=== PATIENT | male | born 1950 | race Caucasian/White ===

== ENCOUNTER 2018-05-23 10:45 | Emergency (ER) | payer OTHER, MEDICAID ==
[~2018-05-23] VITALS: Ht 167.6 cm; Wt 65.0 kg
[~2018-05-23 10:45] MED LIST: UNKNOWN MEDICATION
[2018-05-23 11:52] LABS: BASOPHILS % 1.9 % (0.0-2.0); EOSINOPHILS % 3.4 % (0.0-5.0); HEMATOCRIT. 34.7 % (42.0-52.0); HEMOGLOBIN. 11.5 g/dL (14.0-18.0); LYMPHOCYTES % 14.2 % (20.0-50.0); MEAN CORPUSCULAR HEMOGLOBIN 28.3 pg (28.0-32.0); MEAN CORPUSCULAR VOLUME 85.8 fL (80.0-94.0); MEAN PLATELET VOLUME 8.1 fl (7.4-10.4); MONOCYTES % 10.9 % (2.0-8.0); NEUTROPHILS % 69.6 % (40.0-76.0); PLATELET 291 x1000/uL (130-400); RED BLOOD CELL COUNT 4.05 mill/uL (4.7-6.1); RED CELL DISTRIBUTION WIDTH 16.6 % (11.6-14.6)
[2018-05-23] MEDS ORDERED: SODIUM CHLORIDE 0.9% 1,000 ML IV ONE (11:57)
[2018-05-23 11:58] LABS: CHLORIDE 99 mEq/L (98-107)
[2018-05-23 13:21] LABS: AMYLASE 23 IU/L (25-115)
[2018-05-23 13:25] LABS: BETA HYDROXYBUTYRATE 0.1 mMol/L (0.0-0.3)
[2018-05-23 15:05] LABS: CLARITY URINE CLEAR (CLEAR); COLOR URINE YELLOW (YELLOW); KETONES URINE NEGATIVE (NEGATIVE); LEUKOCYTE ESTERASE URINE NEGATIVE (NEGATIVE); NITRITE URINE NEGATIVE (NEGATIVE); OCCULT BLOOD URINE NEGATIVE (NEGATIVE); PH URINE 5.5 (4.5-8.0); PROTEIN URINE NEGATIVE (NEGATIVE); SPECIFIC GRAVITY URINE 1.031 (1.005-1.030)
[2018-05-23] MEDS ORDERED: INSULIN REGULAR (HUMULIN R) 300UNITS/3ML SUBCUT ONE (15:45)
[2018-05-23] MEDS ORDERED: INSULIN NPH (HUMULIN-N) 100 UNITS/ML 3ML VIAL SUBCUT ONE (15:45)
[2018-05-23 16:31] VITALS: BP 127/71
== END 2018-05-23 16:39 | disposition home or self-care (01) ==
LOC: ER 10:45 → CANBEDREQ 16:59
DX: E11.65 Type 2 diabetes mellitus with hyperglycemia (principal)
CPT/HCPCS: 36415; 71045; 80053; 81003; 82010; 82150; 82962; 83690; 84484; 85025; 93005; 96360; 96372; 99285; J1815; J7030; 96361

== ENCOUNTER 2018-06-14 06:07 | Emergency (ER) | payer OTHER, MEDICAID ==
[~2018-06-14] VITALS: Ht 167.6 cm; Wt 66.0 kg
[2018-06-14 07:56] LABS: CLARITY URINE TURBID (CLEAR); COLOR URINE YELLOW (YELLOW); KETONES URINE NEGATIVE (NEGATIVE); LEUKOCYTE ESTERASE URINE 3+ (NEGATIVE); NITRITE URINE POSITIVE (NEGATIVE); OCCULT BLOOD URINE 2+ (NEGATIVE); PROTEIN URINE 2+ (NEGATIVE); SPECIFIC GRAVITY URINE 1.015 (1.005-1.030)
[2018-06-14] MEDS ORDERED: CEFTRIAXONE 1 G PREMIX 50 ML IV ONE (08:15)
[2018-06-14 09:03] LABS: HEMATOCRIT. 34.3 % (42.0-52.0); HEMOGLOBIN. 11.5 g/dL (14.0-18.0); MEAN CORPUSCULAR HEMOGLOBIN 28.2 pg (28.0-32.0); MEAN CORPUSCULAR VOLUME 83.7 fL (80.0-94.0); PLATELET 664 x1000/uL (130-400); RED BLOOD CELL COUNT 4.09 mill/uL (4.7-6.1); RED CELL DISTRIBUTION WIDTH 14.9 % (11.6-14.6)
[2018-06-14 09:10] LABS: CHLORIDE 99 mEq/L (98-107)
[2018-06-14 09:34] LABS: PLATELET ESTIMATE INCREASED
[2018-06-14 09:57] VITALS: BP 123/70
== END 2018-06-14 10:01 | disposition home or self-care (01) ==
LOC: ER 09:26
DX: N39.0 Urinary tract infection, site not specified (principal); E11.9 Type 2 diabetes mellitus without complications; I10 Essential (primary) hypertension; Z85.038 Personal history of other malignant neoplasm of large intestine; Z98.890 Other specified postprocedural states
CPT/HCPCS: 36415; 51702; 80053; 81003; 85025; 87077; 87086; 87186; 96365; 99284; J0696; A4315

== ENCOUNTER 2021-11-28 20:57 | Emergency (ER) | payer MEDICAID, MEDICARE, OTHER ==
[~2021-11-28] VITALS: Ht 172.7 cm; Wt 69.0 kg
[2021-11-28 21:51] LABS: BASOPHILS % 0.2 % (0.0-2.0); HEMATOCRIT. 37.2 % (42.0-52.0); HEMOGLOBIN. 12.2 g/dL (14.0-18.0); LYMPHOCYTES % 8.2 % (20.0-50.0); MEAN CORPUSCULAR HEMOGLOBIN 27.2 pg (28.0-32.0); MEAN CORPUSCULAR VOLUME 82.9 fL (80.0-94.0); MEAN PLATELET VOLUME 8.1 fl (7.4-10.4); NEUTROPHILS % 88.6 % (40.0-76.0); PLATELET 311 x1000/uL (130-400); RED BLOOD CELL COUNT 4.49 mill/uL (4.7-6.1); RED CELL DISTRIBUTION WIDTH 15.6 % (11.6-14.6)
[2021-11-28 21:55] LABS: CHLORIDE 100 mEq/L (98-107)
[2021-11-28 22:03] LABS: BETA HYDROXYBUTYRATE 0.2 mMol/L (0.0-0.3)
[2021-11-28 23:27] LABS: CLARITY URINE CLEAR (CLEAR); KETONES URINE NEGATIVE (NEGATIVE); LEUKOCYTE ESTERASE URINE NEGATIVE (NEGATIVE); NITRITE URINE NEGATIVE (NEGATIVE); OCCULT BLOOD URINE NEGATIVE (NEGATIVE); PROTEIN URINE NEGATIVE (NEGATIVE); SPECIFIC GRAVITY URINE 1.025 (1.005-1.030); UROBILINOGEN URINE 0.2 E.U./dL (0.2-1.0)
[2021-11-28] MEDS ORDERED: KETOROLAC 30MG/ML VIAL IV STA (23:28)
[2021-11-28] MEDS ORDERED: SODIUM CHLORIDE 0.9% 1,000 ML IV ONE (23:30)
[2021-11-28 23:48] LABS: COLOR URINE PALE YELLOW (YELLOW)
[2021-11-29] MEDS ORDERED: GABA300C MT (02:54)
[2021-11-29 03:30] VITALS: BP 154/76
[2021-11-29] MEDS ORDERED: GABA-529 MT (23:57)
[2021-11-30] MEDS ORDERED: KETOROLAC 15MG/ML VIAL IM NR
== END 2021-11-29 03:53 | disposition home or self-care (01) ==
LOC: ER 20:57
DX: E11.65 Type 2 diabetes mellitus with hyperglycemia (principal); B02.9 Zoster without complications; I10 Essential (primary) hypertension; Z85.9 Personal history of malignant neoplasm, unspecified; Z79.899 Other long term (current) drug therapy
CPT/HCPCS: 36415; 71045; 80053; 81003; 82010; 82962; 85025; 96361; 96374; 99285; J1885; J7030

== ENCOUNTER 2021-11-29 20:02 | Emergency (ER) | payer MEDICARE, MEDICAID ==
[~2021-11-29] VITALS: Ht 162.6 cm; Wt 71.0 kg
[~2021-11-29 20:02] MED LIST changes: +GABA300C MT
[2021-11-29] MEDS ORDERED: GABA-529 MT (23:57)
[2021-11-30 00:40] VITALS: BP 105/57
[2021-11-30] MEDS ORDERED: KETOROLAC 30MG/ML VIAL IM NR (01:00)
== END 2021-11-30 00:47 | disposition home or self-care (01) ==
LOC: ER 20:41
DX: B02.29 Other postherpetic nervous system involvement (principal); R03.0 Elevated blood-pressure reading, without diagnosis of hypertension
CPT/HCPCS: 82962; 96372; 99283; J1885

== ENCOUNTER 2025-10-25 19:14 | Inpatient (IN) | payer MEDICARE, MEDICAID ==
[~2025-10-25] VITALS: Ht 167.6 cm; Wt 73.5 kg
[~2025-10-25 19:14] MED LIST changes: +GABA-529 MT
[2025-10-25 19:19] VITALS: O2SAT 98
[2025-10-25] MEDS: SODIUM CHLORIDE 0.9% (SEPSIS BOLUS) IV ONE (19:54)
[2025-10-25] MEDS: PIPERACILLIN/TAZO 3.375G/50ML 50 ML IV ONE (20:34)
[2025-10-25 20:37] LABS: HEMATOCRIT. 32.7 % (42.0-52.0); HEMOGLOBIN. 10.8 g/dL (14.0-18.0); MEAN PLATELET VOLUME 8.1 fl (7.4-10.4); PLATELET 409 x1000/uL (130-400); RED BLOOD CELL COUNT 4.04 mill/uL (4.7-6.1); RED CELL DISTRIBUTION WIDTH 15.6 % (11.6-14.6)
[2025-10-25 20:48] LABS: INR 1.1
[2025-10-25] MEDS: SODIUM CHLORIDE 0.9% 1,000 ML IV ONE (20:49)
[2025-10-25 20:53] LABS: CREATININE 1.3 mg/dL (0.6-1.3); UREA NITROGEN BLOOD 10 mg/dL (9-23)
[2025-10-25 20:54] LABS: PROTEIN TOTAL 7.3 g/dL (6.0-8.3)
[2025-10-25 20:55] LABS: ASPARTATE AMINOTRANSFERASE 13 IU/L (<34); BILIRUBIN DIRECT 0.1 mg/dL (<=3.0); BILIRUBIN TOTAL 0.4 mg/dL (0.1-1.0)
[2025-10-25 20:57] LABS: BAND% 1.0 % (1.0-6.0); LYMPHOCYTES % MANUAL 3.0 % (20.0-50.0); MONOCYTES % MANUAL 7.0 % (2.0-8.0); NEUTROPHILS % MANUAL 89.0 % (45.0-75.0); PLATELET ESTIMATE INCREASED
[2025-10-25] MEDS: VANCOMYCIN 1G PREMIX 200 ML IV ONE (21:00)
[2025-10-25 21:21] LABS: TROPONIN I HIGH SENSITIVITY 83 ng/L (3.0-53)
[2025-10-25] MEDS: NOREPINEPHRINE 8MG/250ML PMX 250 ML IV ONE (21:23)
[2025-10-25 22:48] LABS: TROPONIN I HIGH SENSITIVITY 86 ng/L (3.0-53)
[2025-10-26] VITALS (93 sets, daily range): BP systolic 67–124; BP diastolic 53–90; PULSE 67–106; RESP 12–26; TEMP 36.6–36.9; O2SAT 91–98
[2025-10-26] LABS: CLARITY URINE CLEAR (CLEAR); COLOR URINE YELLOW (YELLOW); GLUCOSE URINE 2+ (NEGATIVE); KETONES URINE NEGATIVE (NEGATIVE); LEUKOCYTE ESTERASE URINE TRACE (NEGATIVE); NITRITE URINE NEGATIVE (NEGATIVE); OCCULT BLOOD URINE 1+ (NEGATIVE); PH URINE 5.5 (4.5-8.0); PROTEIN URINE NEGATIVE (NEGATIVE); SPECIFIC GRAVITY URINE 1.013 (1.005-1.030); UROBILINOGEN URINE 0.2 E.U./dL (0.2-1.0)
[2025-10-26] MEDS: IOHEXOL-350 100 ML BOTTLE ONE (00:22)
[2025-10-26 01:45] LABS: BACTERIA URINE 1+; RBC URINE 0-2 /hpf (0-2); SQUAMOUS EPITHELIAL CELL URINE FEW /lpf (RARE/1+); WBC URINE 0-2 /hpf (0-2); YEAST URINE 2+
[2025-10-26] MEDS ORDERED: LEVETIRACETAM 500MG in NACL 100ML PREMIX IV SCH (02:15)
[2025-10-26] MEDS ORDERED: ONDANSETRON HCL 4MG/2ML INJ IV PRN (02:15)
[2025-10-26] MEDS ORDERED: CEFEPIME 1GM IN DEXT 5% 50ML IV SCH (02:15)
[2025-10-26] MEDS: LEVETIRACETAM 500MG PREMIX 100 ML IV SCH (02:40)
[2025-10-26] MEDS: DEXT 5%/0.45% NACL KCL 20MEQ/L 1,000 ML IV SCH (02:40)
[2025-10-26] MEDS: CEFEPIME 2GM PREMIX 100ML IV SCH ×2 (04:22→17:06)
[2025-10-26 06:07] LABS: PLATELET 399 x1000/uL (130-400); RED BLOOD CELL COUNT 4.02 mill/uL (4.7-6.1); RED CELL DISTRIBUTION WIDTH 15.9 % (11.6-14.6)
[2025-10-26 06:30] LABS: CREATININE 1.2 mg/dL (0.6-1.3); UREA NITROGEN BLOOD 9.0 mg/dL (9-23)
[2025-10-26] MEDS: MAGNESIUM 2 G PREMIX 50 ML IV NR (08:22)
[2025-10-26] MEDS: VANCOMYCIN 500MG/100ML IV SCH (08:23)
[2025-10-26] MEDS: PANTOPRAZOLE SODIUM 40 MG/VIAL IV SCH (08:23)
[2025-10-26] MEDS ORDERED: DEXTROSE 50% WATER 50ML SYRINGE IV PRN (09:00)
[2025-10-26] MEDS ORDERED: DOCUSATE SODIUM 100MG CAPSULE PO PRN (09:30)
[2025-10-26] MEDS ORDERED: CLONIDINE 0.1MG TABLET PO PRN (09:30)
[2025-10-26] MEDS ORDERED: IPRATROPIUM/ALBUTEROL 0.5-3(2.5)MG/3ML NEB HHN PRN (09:30)
[2025-10-26] MEDS ORDERED: ACETAMINOPHEN 325MG TABLET PO PRN (09:30)
[2025-10-26] MEDS: ASPIRIN 81MG TABLET PO SCH (11:22)
[2025-10-26] MEDS: ENOXAPARIN 40MG/0.4ML SYR SUBCUT SCH (11:22)
[2025-10-26] MEDS: SODIUM CHLORIDE 0.45% 1,000 ML IV SCH (11:23)
[2025-10-26] MEDS: KCL 20MEQ/100ML PREMIX 100 ML IV SCH (11:26)
[2025-10-26] MEDS: POTASSIUM CHLORIDE 20MEQ TABLET SR PO SCH (11:26)
[2025-10-26] MEDS: BLOOD SUGAR DIAGNOSTIC STRIP TEST SCH (11:30)
[2025-10-26] MEDS: VANCOMYCIN 750MG/150ML (BAXTER) IV SCH (12:47)
[2025-10-26] MEDS: INSULIN LISPRO 100 UNITS/ML SUBCUT SCH ×2 (12:50→21:51)
[2025-10-26 13:01] LABS: ETHANOL BLOOD < 10 mg/dL (<10); LDL CHOLESTEROL 39 mg/dL (5-100); TRIGLYCERIDE 193 mg/dL (0-150)
[2025-10-26 13:02] LABS: CREATINE KINASE MB FRACTION 5.5 ng/mL (0.5-3.6)
[2025-10-26] MEDS ORDERED: IOHEXOL-350 100 ML BOTTLE ONE ×3 (16:10→23:54)
[2025-10-26 18:49] LABS: TROPONIN I HIGH SENSITIVITY 2069 ng/L (3.0-53)
[2025-10-26] MEDS: ATORVASTATIN CALCIUM 40MG TABLET PO SCH (21:50)
[2025-10-26] MEDS: INSULIN GLARGINE 100 UNITS/ML SUBCUT SCH (21:52)
[2025-10-26 23:47] LABS: TROPONIN I HIGH SENSITIVITY 1680 ng/L (3.0-53)
[2025-10-27] VITALS (98 sets, daily range): BP systolic 64–111; BP diastolic 47–81; PULSE 63–84; RESP 14–27; TEMP 36–37.6; O2SAT 92–98
[2025-10-27 05:49] LABS: BASOPHILS % 0.7 % (0.0-2.0); EOSINOPHILS % 1.5 % (0.0-5.0); HEMATOCRIT. 30.9 % (42.0-52.0); HEMOGLOBIN. 10.1 g/dL (14.0-18.0); LYMPHOCYTES % 7.1 % (20.0-50.0); MEAN PLATELET VOLUME 7.8 fl (7.4-10.4); MONOCYTES % 7.7 % (2.0-8.0); NEUTROPHILS % 83.0 % (40.0-76.0); PLATELET 393 x1000/uL (130-400); RED BLOOD CELL COUNT 3.86 mill/uL (4.7-6.1); RED CELL DISTRIBUTION WIDTH 15.3 % (11.6-14.6)
[2025-10-27 05:59] LABS: CREATININE 1.0 mg/dL (0.6-1.3); UREA NITROGEN BLOOD 6 mg/dL (9-23)
[2025-10-27] MEDS: ACETAMINOPHEN 325MG TABLET PO PRN (05:59)
[2025-10-27 06:00] LABS: BILIRUBIN TOTAL 0.3 mg/dL (0.1-1.0); PROTEIN TOTAL 6.0 g/dL (6.0-8.3)
[2025-10-27 06:01] LABS: ASPARTATE AMINOTRANSFERASE 11 IU/L (<34); BILIRUBIN DIRECT < 0.1 mg/dL (<=3.0); PHOSPHORUS 1.1 mg/dL (2.5-4.9)
[2025-10-27 06:03] LABS: FOLIC ACID (FOLATE) SERUM 9.14 ng/mL (>5.38); VITAMIN B12 SERUM 375 pg/mL (211-911)
[2025-10-27 06:04] LABS: INR 1.1
[2025-10-27] MEDS: VANCOMYCIN 1.25GM/250ML IV SCH (08:18)
[2025-10-27] MEDS: NOREPINEPHRINE 8MG/250ML PMX 250 ML IV PRN (08:19)
[2025-10-27] MEDS: MAGNESIUM 2 G PREMIX 50 ML IV NR (09:03)
[2025-10-27] MEDS: CYANOCOBALAMIN 1000MCG/ML VIAL IM SCH (09:04)
[2025-10-27] MEDS: INSULIN GLARGINE 100 UNITS/ML SUBCUT SCH (10:21)
[2025-10-27] MEDS: POTASSIUM PHOSPHATE 30 MMOL in SODIUM CHLORIDE 0.9% 490 ML IV NR (11:00)
[2025-10-27] MEDS: FERROUS SULFATE 325MG TABLET PO SCH (12:11)
[2025-10-27 13:21] LABS: *AMPHETAMINES SCREEN URINE NEGATIVE (NEGATIVE); *BARBITURATES SCREEN URINE NEGATIVE (NEGATIVE); *BENZODIAZEPINES SCREEN URINE NEGATIVE (NEGATIVE); *COCAINE SCREEN URINE NEGATIVE (NEGATIVE); CANNABINOID URINE SCREEN NEGATIVE (NEGATIVE); ECSTASY MDMA SCREEN URINE NEGATIVE (NEGATIVE); METHADONE URINE SCREEN NEGATIVE (NEGATIVE); OPIATES URINE SCREEN NEGATIVE (NEGATIVE); PHENCYCLIDINE URINE SCREEN NEGATIVE (NEGATIVE)
[2025-10-27] MEDS: ONDANSETRON HCL 4MG/2ML INJ IV PRN (15:33)
[2025-10-28] VITALS (94 sets, daily range): BP systolic 57–154; BP diastolic 46–119; PULSE 67–82; RESP 13–30; TEMP 36.5–36.8; O2SAT 89–97
[2025-10-28 07:11] LABS: CREATININE 1.0 mg/dL (0.6-1.3)
[2025-10-28 07:12] LABS: UREA NITROGEN BLOOD 7 mg/dL (9-23)
[2025-10-28] MEDS ORDERED: LIDOCAINE HCL 1% 10 MG/ML 10ML VIAL ONE (10:09)
[2025-10-28] MEDS: KCL 20MEQ/100ML PREMIX 100 ML IV NR (11:04)
[2025-10-28] MEDS: MIDODRINE HCL 5MG TABLET PO SCH (12:17)
[2025-10-28] MEDS: CEFEPIME 2GM PREMIX 100ML IV SCH (13:02)
[2025-10-28 17:09] LABS: BASOPHILS % 1.0 % (0.0-2.0); EOSINOPHILS % 2.5 % (0.0-5.0); HEMATOCRIT. 30.4 % (42.0-52.0); HEMOGLOBIN. 10.0 g/dL (14.0-18.0); LYMPHOCYTES % 11.8 % (20.0-50.0); MEAN PLATELET VOLUME 7.8 fl (7.4-10.4); MONOCYTES % 7.3 % (2.0-8.0); NEUTROPHILS % 77.4 % (40.0-76.0); PLATELET 370 x1000/uL (130-400); RED BLOOD CELL COUNT 3.74 mill/uL (4.7-6.1); RED CELL DISTRIBUTION WIDTH 15.6 % (11.6-14.6)
[2025-10-28 17:21] LABS: CREATININE 1.2 mg/dL (0.6-1.3); UREA NITROGEN BLOOD 8.0 mg/dL (9-23)
[2025-10-29] VITALS (53 sets, daily range): BP systolic 90–158; BP diastolic 50–112; PULSE 61–80; RESP 12–30; TEMP 36.3–36.8; O2SAT 90–98
[2025-10-29] MEDS: MIDODRINE HCL 5MG TABLET PO SCH (01:00)
[2025-10-30] VITALS (12 sets, daily range): BP systolic 112–149; BP diastolic 47–78; PULSE 66–74; RESP 14–22; TEMP 36.2–36.8; O2SAT 88–98
[2025-10-30] MEDS ORDERED: METF-1150 MT (11:01)
[2025-10-30] MEDS ORDERED: GLIP5TAB22 MT (11:10)
[2025-10-30] MEDS ORDERED: FLUO10TA34 MT (11:10)
[2025-10-30] MEDS ORDERED: SITA25TA3 MT (11:10)
[2025-10-30] MEDS ORDERED: EMPA10TA MT (11:10)
[2025-10-30] MEDS ORDERED: CLOP-31 MT (11:10)
[2025-10-30] MEDS ORDERED: EZET-82 (11:11)
[2025-10-30] MEDS ORDERED: FERR325T23 MT (11:11)
[2025-10-30] MEDS ORDERED: OMEG-118 MT (11:11)
[2025-10-31] VITALS (12 sets, daily range): BP systolic 124–154; BP diastolic 49–99; PULSE 58–70; RESP 15–23; TEMP 36.4–36.8; O2SAT 90–98
[2025-10-31] MEDS: FAMOTIDINE 20MG/2ML VIAL IV SCH (08:17)
[2025-11-01] VITALS (13 sets, daily range): BP systolic 93–173; BP diastolic 47–88; PULSE 62–87; RESP 12–20; TEMP 36.4–37.2; O2SAT 92–98
== END 2025-11-01 23:35 | disposition home health service (06) | DRG 871 ==
LOC: ER 19:14 → MICUSO 22:36 → EDBEDREQ 22:37 → EDBEDREQTM 22:37 → EDBEDREQSVC 22:37 → ENRESERV 10-26 00:16 → 5EST 10-29 12:05
PROVIDERS: ADMIT Internal Medicine; ATTEND Internal Medicine
PROC: 06HY33Z Insertion of Infusion Device into Lower Vein, Percutaneous Approach (ICD-10-PCS; principal; 2025-10-25)
PROC: B54BZZA Ultrasonography of Right Lower Extremity Veins, Guidance (ICD-10-PCS; 2025-10-25)
PROC: 4A00X4Z Measurement of Central Nervous Electrical Activity, External Approach (ICD-10-PCS; 2025-10-27)
PROC: 02HV33Z Insertion of Infusion Device into Superior Vena Cava, Percutaneous Approach (ICD-10-PCS; 2025-10-28)
PROC: B548ZZA Ultrasonography of Superior Vena Cava, Guidance (ICD-10-PCS; 2025-10-28)
DX: A41.59 Other Gram-negative sepsis (principal); I21.A1 Myocardial infarction type 2; J96.00 Acute respiratory failure, unspecified whether with hypoxia or hypercapnia; R65.21 Severe sepsis with septic shock; G93.40 Encephalopathy, unspecified; E87.20 Acidosis, unspecified; E83.39 Other disorders of phosphorus metabolism; D50.9 Iron deficiency anemia, unspecified; E11.51 Type 2 diabetes mellitus with diabetic peripheral angiopathy without gangrene; N12 Tubulo-interstitial nephritis, not specified as acute or chronic; B96.1 Klebsiella pneumoniae [K. pneumoniae] as the cause of diseases classified elsewhere; I10 Essential (primary) hypertension; E87.1 Hypo-osmolality and hyponatremia; G96.00 Cerebrospinal fluid leak, unspecified; I48.91 Unspecified atrial fibrillation; E11.65 Type 2 diabetes mellitus with hyperglycemia; E87.6 Hypokalemia; E83.42 Hypomagnesemia; S80.212A Abrasion, left knee, initial encounter; S80.211A Abrasion, right knee, initial encounter; S91.001A Unspecified open wound, right ankle, initial encounter; I25.10 Atherosclerotic heart disease of native coronary artery without angina pectoris; E78.00 Pure hypercholesterolemia, unspecified; F17.210 Nicotine dependence, cigarettes, uncomplicated; Z85.048 Personal history of other malignant neoplasm of rectum, rectosigmoid junction, and anus; Z86.73 Personal history of transient ischemic attack (TIA), and cerebral infarction without residual deficits; Z87.442 Personal history of urinary calculi; Z90.5 Acquired absence of kidney; Z91.81 History of falling; Z92.21 Personal history of antineoplastic chemotherapy; Z92.3 Personal history of irradiation; Z93.3 Colostomy status; X58.XXXA Exposure to other specified factors, initial encounter; Y93.89 Activity, other specified; Y92.89 Other specified places as the place of occurrence of the external cause; Y99.8 Other external cause status
CPT/HCPCS: 36415; 36573; 70496; 70498; 71045; 71275; 80048; 80061; 80076; 80202; 80305; 80320; 81003; 82010; 82550; 82553; 82607; 82728; 82746; 82962; 83036; 83540; 83550; 83605; 83735; 83880; 84100; 84145; 84484; 85025; 85027; 87077; 87186; 93005; 93970; 95816; 96365; 99291; 99292; A4606; A4615; C1725; J0690; J0692; J1308; J1650; J1815; J1953; J2003; J2405; J2470; J2543; J3373; J3420; J3475; J3480; J3490; J7030; J7040; Q9967; G0480